=== PATIENT | female | born 2000 | race African-American/Black ===

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

== ENCOUNTER 2021-01-09 22:39 | Emergency (ER) | payer OTHER ==
[~2021-01-09] VITALS: Ht 149.9 cm; Wt 59.0 kg
[~2021-01-09 22:39] MED LIST changes: +METO10TA81 PO
[2021-01-09 22:40] VITALS: BP 115/55
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
== END 2021-01-10 00:05 | disposition home or self-care (01) ==
LOC: ER 22:39
DX: O26.892 Other specified pregnancy related conditions, second trimester (principal); R10.9 Unspecified abdominal pain; G43.909 Migraine, unspecified, not intractable, without status migrainosus; Z90.89 Acquired absence of other organs; Z98.890 Other specified postprocedural states; Z3A.16 16 weeks gestation of pregnancy
CPT/HCPCS: 76815; 81025; 99284

== ENCOUNTER 2021-12-22 03:24 | Emergency (ER) | payer OTHER ==
[~2021-12-22] VITALS: Ht 149.9 cm; Wt 54.5 kg
[2021-12-22 03:28] VITALS: BP 115/76
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
== END 2021-12-22 04:12 | disposition home or self-care (01) ==
LOC: ER 03:24
DX: F10.129 Alcohol abuse with intoxication, unspecified (principal); Y90.9 Presence of alcohol in blood, level not specified; G43.909 Migraine, unspecified, not intractable, without status migrainosus
CPT/HCPCS: 99281; 99283